=== PATIENT | male | born 1940 | race Caucasian/White ===

== ENCOUNTER → 2017-10-09 | Outpatient (CLI) | payer MEDICARE ==
[~2017-10-09] MED LIST: AMITRIPTYLINE25 MG PO; AMOXICILLIN500 M2 PO; CIPRO500 MG PO; LEVOTHYROXINE125 MCG PO; METHYLPRED-DP4 MG PO; ZESTRIL40 MG PO
== END | disposition home or self-care (01) ==
LOC: RAD 14:09
DX: R05 Cough (principal); R09.89 Other specified symptoms and signs involving the circulatory and respiratory systems; I10 Essential (primary) hypertension; Z87.891 Personal history of nicotine dependence

== ENCOUNTER 2017-10-11 13:44 | Inpatient (IN) | payer MEDICARE ==
[~2017-10-11] VITALS: Ht 177.8 cm; Wt 65.8 kg
--- NOTE | ~2017-10-11 | CON ---
[place], [place] REPORT OF CONSULTATION NAME: TRACI OLSEN [facility] #: [id number] UNIT #: [id number] ROOM: 4010 DOCTOR: EILEEN DAMICO MD BIRTHDATE: [birth year] DOS: 10/15/2017 PULMONARY CONSULTATION, EVALUATION AND MANAGEMENT CONSULTATION REQUESTED BY: Dr. Leal. REASON FOR CONSULTATION: Assess the patient's current pleural fluid and other ongoing respiratory symptoms, shortness of breath and others. HISTORY OF PRESENT ILLNESS: A 76-year-old white male, who has been admitted to the hospital under the care of Dr. Leal on 10/11/2016. The patient reported symptoms of having progressive shortness breath according to this patient for the past several days. The symptoms are associated with the cough as well. The patient was suspected with pneumonia with the chest x-ray, which was also described as atelectasis and pleural effusions. He has been started on oral antibiotics as an outpatient. The patient stated the symptoms had not resolved and admitted to the hospital for further medical management of suspected pneumonia, now resolving with current antibiotics. The patient denies any symptoms of hemoptysis. The symptoms started after acute cold symptoms in the beginning. He has not reported any significant pain in the chest or any symptoms of hemoptysis. The patient denies symptoms of sputum expectoration, but reported some chest congestion. REVIEW OF SYSTEMS: CONSTITUTIONAL: Denies any symptoms of fever or chills. Complains of fatigue. EYES: Denies any burning, redness, discharge, or dryness. EARS, NOSE, AND THROAT: No symptoms of sore throat, hoarseness, otalgia, postnasal drainage or epistaxis. CARDIOVASCULAR: Denies any anginal pain, edema, pain of the lower extremity. GASTROINTESTINAL: Denies any dysphagia, nausea, vomiting, diarrhea, abdominal pain, hematemesis, melena, abnormal weight loss, or dysphagia. GENITOURINARY: Denies dysuria, suprapubic pain, or hematuria. SKIN: Denies lesions or rashes in any parts of the body. MUSCULOSKELETAL: No acute joint pain, redness, or tenderness. CENTRAL NERVOUS SYSTEM: No dizziness, headache, diplopia, syncopal episode, or seizures history. Remaining systems were reviewed. They were noted all negative. PAST MEDICAL HISTORY: Noted with history of: 1. Benign essential hypertension. 2. Hypothyroidism. PAST SURGICAL HISTORY: Reported with shoulder surgery that was done recently. SOCIAL HISTORY: Noted nonsmoker lifetime, , has no children, lives in his home. FAMILY HISTORY: Essentially was noted as unknown. MEDICATIONS: Currently administered medication were noted as use of lisinopril, [place], [place] REPORT OF CONSULTATION NAME: TRACI OLSEN UNIT #: [id number] ROOM: 4010 DOCTOR: EILEEN DAMICO MD BIRTHDATE: [birth year] levothyroxine, Mucinex, Rocephin, and IV Levaquin. DuoNeb was also given to this patient every 4 hours. DRUG ALLERGIES: Reported as no known drug allergies. PHYSICAL EXAMINATION: GENERAL: A 76-year-old male who has been currently sitting on his bed without any acute distress at time of assessment. VITAL SIGNS: Height was recorded as 5 feet 10 inches, weight 145 pounds, BMI 20.8 on admission. The temperature was recorded as normal throughout the admission from 10/11. The respiratory rate ranged between 18-12, heart rate 78-84, blood pressure 129/84-139/87. Pulse oxygen saturation on room air at rest was noted as 94-95% saturation. HEENT: Head was atraumatic. Eyes nonicterus. NECK: Supple. Oral mucosa was noted moist. CARDIOVASCULAR: S1, S2 is audible without any added sounds. LUNGS: Decreased breath sounds noted in the lungs bilaterally. Scattered crackles without any wheezing. ABDOMEN: Soft, flat, nontender, bowel sounds present without any tenderness. EXTREMITIES: Noted without any edema, clubbing, or cyanosis. CENTRAL NERVOUS SYSTEM: Noted without any gross focal neurologic deficit. Cranial nerves 2-12 intact. SKIN: No lesions or rashes. MUSCULOSKELETAL: No obvious deformities. LABORATORY DATA: The patient's CBC on 10/11 on admission was noted completely normal. Lactic acid 1.6. CMP on admission on 10/11, normal BUN and creatinine. AST and ALT were noted mildly elevated, AST 50, ALT of 96. The CMP that was done on 10/13 was noted as normal CMP except albumin mildly decreased at 3.0, total protein mildly decreased at 6.0. Blood culture on 10/11 2 sets was noted without any bacterial growth since admission. Review of the radiology data was done for the patient personally. The chest x-ray, the first one done on 10/09/2017 was the only x-ray done in the hospital in the beginning shows small pleural fluid, basilar area of infiltration. The chest x-ray, second shows increased interstitial marking and increase of infiltration with pleural fluids. Chest x-ray that was done for the patient on 10/12 shows further worsening of the infiltration. CT scan of the chest that was done at that time shows evidence of moderate pleural fluid with compression atelectasis. Partial loculation was suspected in the left lower lobe. Patchy infiltration was noted in the basilar subsegment of the left upper lobe as well. Review of the mediastinal windows was noted suboptimal because of lack of IV contrast. However, lymphadenopathy was suspected, but cannot be clearly defined by all the dimensions. IMPRESSION: The patient who has been currently admitted to the hospital noted with: 1. Symptoms of shortness of breath with cough, possibility of acute pneumonia with superimposed congestive heart failure or bilateral pleural fluid. Other differential diagnosis will be considered possibility of superimposed congestive heart failure, undiagnosed. [place], [place] REPORT OF CONSULTATION NAME: TRACI OLSEN UNIT #: [id number] ROOM: 4010 DOCTOR: EILEEN DAMICO MD BIRTHDATE: [birth year] 2. The patient with a history of essential hypertension and hypothyroidism. There has not been any diagnosed past pulmonary disease. PLAN OF MANAGEMENT: Continue current double antibiotic coverage for the medical management of suspected pneumonia. Ultrasound assessment will be done tomorrow morning at the bedside for possible consideration of thoracentesis. Bronchodilator to be continued as previously ordered, had moderate secretions. He does not have significant cough, so the sputum culture could not be sent. Other supportive therapy and plan of management to be done. Usual care, the plan of therapy as ordered. Additional treatment changes will be made based on progression of the illness. PT/PTT will be obtained as well. Thanks for allowing me to participate in the care of this patient. EILEEN ZULUAGA MD CM:CONSTR:REPORT OF CONSULTATION 1437 10/15/17 9164 interface
--- NOTE | ~2017-10-11 | WRIGHTHP ---
[place], [place] PATIENT HISTORY AND PHYSICAL EXAM NAME: TRACI OLSEN UNIT #: [id number] ROOM: [facility] DOCTOR: MORIAH AVILES MD BIRTHDATE: [birth year] DOS: 10/11/2017 HISTORY OF PRESENT ILLNESS: The patient is 76 years old. The patient is very well known to us. He was seen in the office on Sunday with complaints of cough and shortness of breath, had a chest x-ray and was placed on antibiotics. Chest x-ray showed bibasilar pneumonia with atelectasis and pleural effusion. The patient continues to get worse with increasing shortness of breath and some chest heaviness and pleuritic complaints, so he was brought back to the Emergency Room, was admitted this time after evaluation. He denies having any fever, chills, any abdominal pain, nausea, any emesis. PAST MEDICAL HISTORY: Significant for: 1. Hypertension. 2. Recent shoulder surgery. MEDICATIONS: That he takes are levothyroxine 125 mcg daily, lisinopril 40 daily. SOCIAL HISTORY: Nonsmoker, does not use any alcohol. Lives at home with his . He is retired. PHYSICAL EXAMINATION: GENERAL: The patient is awake and alert and oriented, in no major distress this morning. VITAL SIGNS: Graphic trend shows the patient is afebrile, blood pressure is 124/84, pulse of 70, respirations 18, temperature 97.5. LUNGS: Diminished breath sounds. No wheezes, rales or rhonchi heard. HEART: Regular. ABDOMEN: Soft, scaphoid. EXTREMITIES: Without any edema. LABORATORY DATA: Shows WBC count of 9.2, hemoglobin 14.4, hematocrit 43.1. Lactic acid 1.6. Comprehensive within normal limits except for LFT abnormalities noted. ASSESSMENT AND PLAN: 1. Pneumonia, bilateral lower lobe with possibility of pleural effusion. A CT of the chest will be ordered to see the extent of the disease. The patient has been placed on IV antibiotics. 2. Hypothyroidism. Restart home medication. 3. Benign hypertension. Continue lisinopril 40 mg daily. 4. Abnormal LFTs. Liver enzymes will be ordered for tomorrow. [place], [place] PATIENT HISTORY AND PHYSICAL EXAM NAME: TRACI OLSEN UNIT #: [id number] ROOM: [facility] DOCTOR: MORIAH AVILES MD BIRTHDATE: [birth year] MORIAH AVILES MD CM:HISPHYS:PATIENT HISTORY AND PHYSICAL EXAMINATION 9 MORIAH AVILES MD 10/12/17919 interface
--- NOTE | ~2017-10-11 | PR ---
[place], [place] PROGRESS NOTE [id number] #: [id number] ROOM: 404 DOCTOR: PANCHO FELIX MD BIRTHDATE: [birth year] DOS: 10/14/2017 SUBJECTIVE: The patient complaining of some chest congestion and shortness of breath, especially when he did not take his one breathing treatment last evening. He also has cough. OBJECTIVE: VITAL SIGNS: Blood pressure 128/68, heart rate 84 beats per minute, breathing 18 times per minute, temperature 97.6 degrees Fahrenheit. GENERAL APPEARANCE: The patient is alert and oriented x 3, in no visible distress. HEENT AND NECK: Exam within normal limits. CARDIOVASCULAR SYSTEM: Heart rate is regular in rate and rhythm. S1 and S2 normally audible. LUNGS: Clear to auscultation. ABDOMEN: Soft, nontender. No obvious organomegaly. Bowel sounds are present. EXTREMITIES: Without significant cyanosis or edema. IMPRESSION: 1. Patient with bilateral pneumonia and large pleural effusion on CT of the chest. The effusion may need to be drained. I am consulting Dr. Browne to evaluate the patient. 2. Hypothyroidism, treated with supplements. 3. Benign essential hypertension. Patient on lisinopril. Blood pressures are being monitored and controlled. 4. Liver enzymes normal on the repeat test. PANCHO FELIX MD CM:PNTRANS 1522 0038 PANCHO FELIX MD 10/15/17 0038 interface
--- NOTE | ~2017-10-11 | PR ---
[place], [place] PROGRESS NOTE [id number] UN[facility] #: [id number] ROOM: 404 DOCTOR: OMRIAH AVILES MD BIRTHDATE: [birth year] DOS: SUBJECTIVE: The patient is feeling well this morning. His cough is productive of copious amounts of mucus. He is able to cough it up and he is no longer short of breath. Does not have any more chest heaviness. OBJECTIVE: VITAL SIGNS: Graphic trend shows a pressure of 126/82, pulse of 78, respirations 16 and temperature 97.2. LUNGS: Diminished breath sounds. Few scattered rales heard bilaterally. HEART: Regular. ABDOMEN: Soft. EXTREMITIES: Without any edema. ASSESSMENT AND PLAN: 1. Bilateral pneumonia, possible gram negative. Failed outpatient regimen. Admitted and treated with antibiotics and breathing treatments. 2. Bilateral large pleural effusion noted on CT of the chest with compressive atelectasis. The patient is clinically better. We did not do a thoracentesis. We will repeat a CT scan to make sure that it is resolved before I make arrangements for discharge. 3. Benign hypertension, controlled. MORIAH AVILES MD CM:PNTRANS 1 MORIAH AVILES MD 10/15/1752 interface
--- NOTE | ~2017-10-11 | PR ---
[place], [place] PROGRESS NOTE NAME: TRACI OLSEN [place] UNIT #: [id number] ROOM: 4010 DOCTOR: EILEEN DAMICO MD BIRTHDATE: [birth year] DOS: 10/16/2017 SUBJECTIVE: The patient has been noted comfortable, still noted with dyspnea with exertion. Coughing has been decreased. Denies symptoms of chest pain or any hemoptysis. Denies any edema, pain of the lower extremities. Denies any skin lesions. OBJECTIVE: VITAL SIGNS: For the patient, which has been recorded showed the temperature noted normal, respirations 18, heart rate 81, blood pressure 112/79. The pulse oxygen saturation recorded as 91% on room air at rest. HEENT: Examination shows head was atraumatic. Eyes nonicterus. NECK: Supple. CARDIOVASCULAR: S1, S2 audible. LUNGS: The patient was noted without any crackle, rhonchi or wheezing. Decreased breath sounds are noted in lower portion of the lungs, previously unchanged. ABDOMEN: Soft, nontender. Bowel sounds present. EXTREMITIES: The patient was noted without any acute edema, clubbing or cyanosis. SKIN: Visible skin. No lesions or rashes. MUSCULOSKELETAL: Does not show any acute deformities. LABORATORY DATA: No labs for the patient were done today. I have personally performed the ultrasound of the chest bilateral with moderate, pleural fluid was noted in the lungs bilaterally, greater on the right than the left side. IMPRESSION: Bilateral pleural fluid, area of compression atelectasis, possibility of superimposed acute pneumonia with the coughing and shortness of breath, required further assessment. PLAN OF MANAGEMENT: The patient will benefit from bilateral therapeutic and diagnostic thoracentesis for further assessment of pleural fluid. Possible consideration of the congestive heart failure undiagnosed to be considered in the differential diagnosis. Continue antibiotic for the suspected acute pneumonia as previously. Usual care. Additional treatment changes will be made based on the assessment of pleural fluid. [place], [place] PROGRESS NOTE NAME: TRACI OLSEN [place] UNIT #: [id number] ROOM: [facility] DOCTOR: EILEEN DAMICO MD BIRTHDATE: [birth year] EILEEN ZULUAGA MD CM:PNTRANS 1358 0034 EILEEN MARI MD 10/17/17 0303 interface
--- NOTE | ~2017-10-11 | DS ---
[place], [place] DISCHARGE SUMMARY NAME: TRACI OLSEN UNIT #: [id number] ROOM: 4010 DOCTOR: MORIAH AVILES MD BIRTHDATE: [birth year] DOS: 10/17/2017 The patient is 76 years old, admitted on 10/11, discharged on 10/17. DIAGNOSES: 1. Pneumonia, bilateral with bilateral pleural effusions and compressive atelectasis. 2. Thoracentesis, performed by Dr. Browne with close to a liter of fluid removed. 3. Benign hypertension. 4. Valvular heart disease with valve regurgitation. 5. Primary insomnia. 6. Hypothyroidism. HOSPITAL COURSE: The patient is 76 years old, comes in with complaints of difficulty breathing. The patient was placed on antibiotics as an outpatient. This did not improve. He continued to get short of breath with increasing cough. The patient was admitted to the hospital, was placed on IV antibiotics, breathing treatments and seemed to be improving, but presently continued to have a cough, so we decided to go ahead and do a CT of the chest. CT showed bilateral pleural effusions, pretty large, which is much worse on the chest x-ray findings. Abnormal liver enzymes were noted, but it came down. This could be from the infectious pathology. Dr. Browne was consulted. Thoracentesis was performed. Body fluid analysis showed that this was mostly transudative and suggested a Cardiology consultation. The patient is stable and is walking around without any complaints. He is comfortable at rest and on exercise. There is no evidence of desaturation. The plan therefore is to discharge him to home today on p.o. antibiotics and follow up with Cardiology as an outpatient. I did consult Dr. Hay. The patient is ready to be discharged this morning and he stated that he will follow up with Cardiology as an outpatient. DISCHARGE MEDICATIONS: We will make arrangements for him to see Dr. Hay as an outpatient. For right now, his meds are lisinopril 40 daily, levothyroxine 125 mcg daily, Cipro 400 mg twice daily and Elavil 25 at bedtime. [place], [place] DISCHARGE SUMMARY NAME: TRACI OLSEN UNIT #: [id number] ROOM: 4010 DOCTOR: MORIAH AVILES MD BIRTHDATE: [birth year] MORIAH AVILES MD CM:RUBEN 5 3 MORIAH AVILES MD 10/17/17903 interface
--- NOTE | ~2017-10-11 | PR ---
[place], [place] PROGRESS NOTE [id number] #: [id number] ROOM: 404 DOCTOR: PANCHO FELIX MD BIRTHDATE: [birth year] DOS: 10/13/2017 SUBJECTIVE: Patient was seen on 10/13/2017 and he said his breathing continues to significantly improve, especially with the breathing treatments, still has slight congestion he feels in his lungs. OBJECTIVE: VITAL SIGNS: Blood pressure 128/68, heart rate 84 beats, breathing 18 times a minute, temperature is 98 degrees Fahrenheit. GENERAL APPEARANCE: The patient is alert and oriented x 3, in no visible distress. HEENT AND NECK: Exam within normal limits. CARDIOVASCULAR SYSTEM: Heart rate is regular in rate and rhythm. S1 and S2 normally audible. LUNGS: Clear to auscultation. ABDOMEN: Soft, nontender. No obvious organomegaly. Bowel sounds are present. EXTREMITIES: Without significant cyanosis or edema. IMPRESSION: 1. Patient with bilateral lower lobe pneumonia and some pleural effusions, being evaluated by a repeat CT of the chest and treated with antibiotics. Patient remains on Levaquin and ceftriaxone. 2. Benign essential hypertension, treated with lisinopril. 3. Hypothyroidism, treated with levothyroxine. PANCHO FELIX MD CM:PNTRANS 1524 PANCHO FELIX MD 10/15/170 interface
--- NOTE | ~2017-10-11 | PR ---
[place], [place] PROGRESS NOTE [id number] UNIT #: [id number] ROOM: 4010 DOCTOR: MORIAH AVILES MD BIRTHDATE: [birth year] DOS: SUBJECTIVE: The patient states that he feels good. His cough has subsided. He is no longer short of breath and does not have any tightness. OBJECTIVE: VITAL SIGNS: Blood pressure is 118/70, pulse of 82, respirations 20, temperature 98.2. LUNGS: Clear. HEART: Regular. ABDOMEN: Soft. EXTREMITIES: Without any edema. ASSESSMENT AND PLAN: Compressive atelectasis with bilateral pleural effusions right-sided pneumonia. The patient is on IV antibiotics. Clinically much improved, radiologically also it is improving. Blood culture shows no bacterial growth. Now pleural effusions, the patient is waiting for Dr. Browne to do a thoracentesis. If the ultrasound does not show much fluid, then this patient can be discharged to home today on the p.o. antibiotics that has been prescribed. Discussed with the patient and nursing staff in detail. MORIAH AVILES MD CM:PNTRANS 0833 5 MORIAH AVILES MD 10/16/17 0957 interface
--- NOTE | ~2017-10-11 | PROC NOTE ---
[place], [place] PROCEDURE NOTE [id number] UNIT #: [id number] ROOM: 4010 DOCTOR: ZAN MARI MD,EILEEN BIRTHDATE: [birth year] DOS: 10/16/2017 PROCEDURE: Left-sided ultrasound-guided thoracentesis. PREOPERATIVE DIAGNOSIS: The patient with [id number] left pleural fluid. POSTOPERATIVE DIAGNOSIS: Successful removal of 550 mL of pleural fluid from the left pleural space, straw colored without any difficulty or complications. PROCEDURE DESCRIPTION: Informed consent obtained for the patient. The fluid was already marked personally with the ultrasound in the posterior lower chest wall. After that, skin was cleaned with chlorhexidine solution. A 1% lidocaine was administered in the skin intercostal space. Small amount of fluid aspirated during administration of local anesthetic. After that, an incision given in the skin. [place] thoracentesis catheter introduced through the incision left pleural space. A total of 550 mL pleural fluid from the left side was collected in the syringe and vacuum bottle. The pH was also taken for the pleural fluid directly. Procedure was well tolerated by the patient without any difficulty. Post-thoracentesis images show resolution of pleural fluid, the lung completely expanded. Chest x-ray was done for the patient post-thoracentesis that was personally reviewed shows marked improvement aeration of the lung with patchy infiltration, was still noted in the right upper lobe. There was no evidence of any pneumothorax. EILEEN ZULUAGA MD CM:PROCNOTE:PROCEDURE NOTE 1401 0039 EILEEN MARI MD
--- NOTE | ~2017-10-11 | PR ---
[place], [place] PROGRESS NOTE [id number] UNIT #: [id number] ROOM: 4010 DOCTOR: MORIAH AVILES MD BIRTHDATE: [birth year] DOS: 10/17/2017 SUBJECTIVE: The patient has no complaints today. OBJECTIVE: VITAL SIGNS: Blood pressure is 116/69, pulse of 76, respirations 18, temperature 98. LUNGS: Clear. HEART: Regular, with a systolic murmur. ABDOMEN: Soft. EXTREMITIES: Without any edema. The patient underwent a thoracentesis yesterday. Pleural fluid analysis showed that to be a transudate. ASSESSMENT AND PLAN: 1. Pneumonia, possible gram-negative, on IV antibiotics, which can be switched to p.o. 2. Bilateral pleural effusions with compressive atelectasis, status post thoracentesis. Dr. Browne did see the patient and he feels that the fluid effusion could be from a cardiac cause rather than a pulmonary cause. 3. Hypertension. The patient did have an echocardiogram, which showed valvular heart disease. Already on lisinopril. We will continue medications. We will follow up as an outpatient with Cardiology. MORIAH AVILES MD CM:PNTRANS [id number] [id number] MORIAH AVILES MD 10/17/17 1410 interface
--- NOTE | ~2017-10-11 | PROC NOTE ---
[place], [place] PROCEDURE NOTE [id number] UNIT #: [id number] ROOM: 4010 DOCTOR: ZAN MARI MD,EILEEN BIRTHDATE: [birth year] DOS: 10/16/2017 PROCEDURE: Right-sided ultrasound-guided thoracentesis. PREOPERATIVE DIAGNOSIS: The patient with nlcbvykl-ya-rhwas right pleural fluid. POSTOPERATIVE DIAGNOSIS: Successful removal of 800 mL of pleural fluid from the right pleural space, straw colored without any difficulty or complications. PROCEDURE DESCRIPTION: Informed consent obtained for the patient. The fluid was already marked personally with the ultrasound in the posterior lower chest wall. After that, skin was cleaned with chlorhexidine solution. A 1% lidocaine was administered in the skin intercostal space. Small amount of fluid aspirated during administration of local anesthetic. After that, an incision given in the skin. Turk[place] thoracentesis catheter introduced through the incision right pleural space. A total of 800 mL pleural fluid was collected in the syringe and vacuum bottle. The pH was also taken for the pleural fluid directly. Procedure was well tolerated by the patient without any difficulty. Post-thoracentesis images show resolution of pleural fluid, the lung completely expanded. EILEEN ZULUAGA MD CM:PROCNOTE:PROCEDURE NOTE 1401 0036 EILEEN MARI MD
[2017-10-11] MEDS ORDERED: LEVOTHYROXINE125 MCG PO (13:47)
[2017-10-11] MEDS ORDERED: ZESTRIL40 MG PO (13:47)
[2017-10-11] MEDS ORDERED: AMOXICILLIN500 M2 PO (13:48)
[2017-10-11] MEDS ORDERED: METHYLPRED-DP4 MG PO (13:48)
[2017-10-11 13:51] VITALS: BP 122/71
[2017-10-11 14:18] LABS: BASO % 0.3 % (0.0-1.0); EOS % 0.2 % (1.0-4.0); HEMATOCRIT 43.1 % (42.0-52.0); HEMOGLOBIN 14.4 g/dl (14.0-18.0); LYMPH # 0.9 10*3/uL (1.3-4.4); LYMPH % 10.2 % (27.0-41.0); MEAN CELL VOLUME 92.9 fl (80.0-94.0); MEAN CORPUSCULAR HGB CONC 33.4 g/dl (33.0-37.0); MEAN PLATELET VOLUME 9.7 fl (9.6-12.3); MONO # 0.8 10*3/uL (0.1-1.0); MONO % 8.2 % (3.0-9.0); NEUT # 7.5 10*3/uL (2.3-7.9); NEUT % 80.8 % (47.0-73.0); PLATELET COUNT AUTOMATED 278 10*3/uL (130-400); RED BLOOD COUNT 4.64 10*6/uL (4.50-5.90); RED CELL DISTRI WIDTH 13.5 % (0-14.5); WHITE BLOOD COUNT 9.2 10*3/uL (4.8-10.8)
[2017-10-11 14:35] LABS: ALBUMIN 3.5 gm/dl (3.1-4.5); ALKALINE PHOSPHATASE 89 U/L (45-117); BUN 16 mg/dl (7-24); CHLORIDE 103 mmol/L (98-107); CREATININE 0.97 mg/dL (0.70-1.30); POTASSIUM 4.9 mmol/L (3.5-5.1); SGOT/AST 50 IU/L (3-35); SGPT/ALT 96 U/L (12-78); SODIUM 138 mmol/L (136-145); TOTAL PROTEIN 6.9 gm/dL (6.4-8.2)
[2017-10-11 14:42] LABS: TROPONIN I < 0.015 ng/ml (<0.045)
[2017-10-11 16:00] VITALS: BP 128/87
[2017-10-11 16:30] VITALS: BP 127/80
[2017-10-11 16:51] VITALS: BP 124/90
[2017-10-11 20:00] VITALS: BP 121/78
[2017-10-12] VITALS: BP 132/85
[2017-10-12 08:00] VITALS: BP 124/84
[2017-10-12 16:00] VITALS: BP 116/61
[2017-10-12 20:00] VITALS: BP 90/50
[2017-10-13] VITALS: BP 124/73
[2017-10-13 08:00] VITALS: BP 144/74
[2017-10-13 08:25] LABS: ALKALINE PHOSPHATASE 73 U/L (45-117); BUN 13 mg/dl (7-24); CHLORIDE 105 mmol/L (98-107); CREATININE 0.93 mg/dL (0.70-1.30); SGOT/AST 20 IU/L (3-35); SGPT/ALT 61 U/L (12-78); SODIUM 140 mmol/L (136-145)
[2017-10-13 08:33] LABS: POTASSIUM 3.9 mmol/L (3.5-5.1)
[2017-10-13 16:00] VITALS: BP 128/67
[2017-10-13 20:00] VITALS: BP 118/70
[2017-10-14] VITALS: BP 139/87
[2017-10-14 08:00] VITALS: BP 128/68
[2017-10-14 16:15] VITALS: BP 122/69
[2017-10-14 20:06] VITALS: BP 117/65
[2017-10-15] VITALS: BP 129/84
[2017-10-15 08:00] VITALS: BP 126/82
[2017-10-15] MEDS ORDERED: CIPRO500 MG PO (08:41)
[2017-10-15] MEDS ORDERED: AMITRIPTYLINE25 MG PO (08:41)
[2017-10-15 11:42] LABS: ACT PARTIAL THROMBO TIME 26.2 SECONDS (20.8-31.5)
[2017-10-15 16:00] VITALS: BP 118/79
[2017-10-15 20:00] VITALS: BP 109/90
[2017-10-16] VITALS: BP 118/70
[2017-10-16 08:00] VITALS: BP 134/80
[2017-10-16 11:27] LABS: BODY FLUID WBC 107 /uL
[2017-10-16 11:31] LABS: BODY FLUID WBC 94 /uL
[2017-10-16 12:00] VITALS: BP 112/79
[2017-10-16 12:09] LABS: BF LYMPHOCYTES 66 %; BF MONOCYTES 24 %; BF NEUTROPHILS 10 %
[2017-10-16 12:12] LABS: BF LYMPHOCYTES 63 %; BF MONOCYTES 22 %; BF NEUTROPHILS 15 %
[2017-10-16 16:00] VITALS: BP 104/58
[2017-10-17] VITALS: BP 116/69
== END 2017-10-17 08:57 | disposition home or self-care (01) | DRG 194 ==
LOC: ED 13:44 → EDHOLD 15:55 → 4E 15:55 → 4NE 15:55 → 4E 16:34 → 4NE 10-15 21:44
PROVIDERS: Internal Medicine; Internal Medicine Critical Care Medicine; Student in an Organized Health Care Education/Training Program
PROC: 0W9B3ZZ Drainage of Left Pleural Cavity, Percutaneous Approach (ICD-10-PCS; principal; 2017-10-16)
PROC: 0W993ZZ Drainage of Right Pleural Cavity, Percutaneous Approach (ICD-10-PCS; 2017-10-16)
DX: J18.9 Pneumonia, unspecified organism (principal); J90 Pleural effusion, not elsewhere classified; I38 Endocarditis, valve unspecified; J98.11 Atelectasis; I10 Essential (primary) hypertension; G47.00 Insomnia, unspecified; E03.9 Hypothyroidism, unspecified; Z79.899 Other long term (current) drug therapy

== ENCOUNTER → 2017-11-09 | Outpatient (CLI) | payer MEDICARE | END | disposition home or self-care (01) | LOC: CT 16:20 | DX: I77.810 Thoracic aortic ectasia (principal); J90 Pleural effusion, not elsewhere classified ==

== ENCOUNTER → 2017-12-10 | Outpatient (CLI) | payer MEDICARE | END | disposition home or self-care (01) | LOC: RAD 13:23 | DX: T17.900D Unspecified foreign body in respiratory tract, part unspecified causing asphyxiation, subsequent encounter (principal); J90 Pleural effusion, not elsewhere classified; X58.XXXD Exposure to other specified factors, subsequent encounter ==

== ENCOUNTER → 2017-12-25 | Outpatient (CLI) | payer MEDICARE | END | disposition home or self-care (01) | LOC: LAB 10:53 | PROVIDERS: Internal Medicine Cardiovascular Disease | DX: Z48.812 Encounter for surgical aftercare following surgery on the circulatory system (principal); Z95.2 Presence of prosthetic heart valve ==

== ENCOUNTER → 2017-12-31 | Outpatient (CLI) | payer MEDICARE ==
[2017-12-31 15:51] LABS: INTERNATIONAL NORM RATIO 4.4 (2.0-3.5)
== END | disposition home or self-care (01) ==
LOC: LAB 15:05
PROVIDERS: Internal Medicine Cardiovascular Disease
DX: I48.91 Unspecified atrial fibrillation (principal)

== ENCOUNTER → 2018-01-07 | Outpatient (CLI) | payer MEDICARE ==
[2018-01-07 14:35] LABS: INTERNATIONAL NORM RATIO 2.4 (2.0-3.5)
== END | disposition home or self-care (01) ==
LOC: LAB 11:49
PROVIDERS: Internal Medicine Cardiovascular Disease
DX: I48.91 Unspecified atrial fibrillation (principal)

== ENCOUNTER → 2018-01-14 | Outpatient (CLI) | payer MEDICARE ==
[2018-01-14 14:32] LABS: INTERNATIONAL NORM RATIO 3.6 (2.0-3.5)
== END | disposition home or self-care (01) ==
LOC: LAB 13:37
PROVIDERS: Internal Medicine Cardiovascular Disease
DX: I48.91 Unspecified atrial fibrillation (principal)

== ENCOUNTER → 2018-01-21 | Outpatient (CLI) | payer MEDICARE ==
[2018-01-21 14:03] LABS: INTERNATIONAL NORM RATIO 2.1 (2.0-3.5)
== END | disposition home or self-care (01) ==
LOC: LAB 13:15
PROVIDERS: Internal Medicine Cardiovascular Disease
DX: I48.91 Unspecified atrial fibrillation (principal)

== ENCOUNTER → 2018-01-30 | Outpatient (CLI) | payer MEDICARE | END | disposition home or self-care (01) | LOC: LAB 13:20 | PROVIDERS: Internal Medicine Cardiovascular Disease | DX: I48.91 Unspecified atrial fibrillation (principal) ==

== ENCOUNTER → 2018-02-06 | Outpatient (CLI) | payer MEDICARE ==
[2018-02-06 13:32] LABS: INTERNATIONAL NORM RATIO 1.9 (2.0-3.5)
== END | disposition home or self-care (01) ==
LOC: LAB 13:06
PROVIDERS: Internal Medicine Cardiovascular Disease
DX: I48.91 Unspecified atrial fibrillation (principal)

== ENCOUNTER → 2018-02-11 | Outpatient (CLI) | payer MEDICARE ==
[2018-02-11 13:06] LABS: INTERNATIONAL NORM RATIO 2.3 (2.0-3.5)
== END | disposition home or self-care (01) ==
LOC: LAB 11:52
PROVIDERS: Internal Medicine Cardiovascular Disease
DX: I48.91 Unspecified atrial fibrillation (principal)

== ENCOUNTER → 2018-02-26 | Outpatient (CLI) | payer MEDICARE | END | disposition home or self-care (01) | LOC: LAB 10:16 | PROVIDERS: Internal Medicine Cardiovascular Disease | DX: I48.91 Unspecified atrial fibrillation (principal) ==

== ENCOUNTER → 2018-03-01 | Outpatient (CLI) | payer MEDICARE ==
[2018-03-01 10:57] LABS: INTERNATIONAL NORM RATIO 1.2 (2.0-3.5)
== END | disposition home or self-care (01) ==
LOC: LAB 10:00
PROVIDERS: Internal Medicine Cardiovascular Disease
DX: I48.91 Unspecified atrial fibrillation (principal)

== ENCOUNTER → 2018-03-08 | Outpatient (CLI) | payer MEDICARE ==
[2018-03-08 11:21] LABS: INTERNATIONAL NORM RATIO 3.4 (2.0-3.5)
== END | disposition home or self-care (01) ==
LOC: LAB 10:07
PROVIDERS: Internal Medicine Cardiovascular Disease
DX: I48.91 Unspecified atrial fibrillation (principal)

== ENCOUNTER → 2018-03-12 | Outpatient (CLI) | payer MEDICARE ==
--- NOTE | ~2018-03-12 | PF ---
[place], [place] PULMONARY FUNCTION TEST [id number] UNIT #: [id number] ROOM: DOCTOR: ZAN MARI MD,EILEEN BIRTHDATE: [birth year] DOS: 03/12/2018 The test was ordered by Dr. Jasmin Hay. HISTORY: The patient recorded a 77-year-old outpatient, male, height of 70 inches, weight of 130 pounds with BMI of 18.6. The testing was done for assessment of amiodarone therapy. SPIROMETRY: The FVC was recorded 3.68 liters, which is 90% predicted value. The FEV1 was noted recorded as 2.60 liters at 87% predicted value. Ratio of FEV1/FVC was noted as normal. The flow volume loop assessment was noted with possibility of mild obstructive airway pattern. There were no postbronchodilator testing done to see any improvement in the FEV1 or FVC. LUNG VOLUMES: Thoracic gas volume recorded as 99%, residual volume 112%, total lung capacity 91%. RV/TLC ratio 119%. Lung volumes suggestive of very mild air trapping. The patient's lung diffusion recorded at 45%, which was severely decreased without correction of carbon monoxide hemoglobin values. The patient's airway resistance and passive conductance were noted as normal. FINAL IMPRESSION: The current pulmonary function testing, which was done without any bronchodilator was noted with finding of severe reduction in the lung diffusion and mild air trapping. EILEEN ZULUAGA MD CM:PFREPORT:PULMONARY FUNCTION TEST 1638 0020 EILEEN MARI MD
[2018-03-12 08:40] LABS: ALBUMIN 3.4 gm/dl (3.1-4.5); BUN 19 mg/dl (7-24); CHLORIDE 105 mmol/L (98-107); CREATININE 1.16 mg/dL (0.70-1.30); POTASSIUM 4.8 mmol/L (3.5-5.1); SGOT/AST 28 IU/L (3-35); SGPT/ALT 47 U/L (12-78); SODIUM 139 mmol/L (136-145); TOTAL PROTEIN 7.1 gm/dL (6.4-8.2)
[2018-03-12 08:44] LABS: INTERNATIONAL NORM RATIO 3.6 (2.0-3.5)
[2018-03-12 08:49] LABS: ALKALINE PHOSPHATASE 120 U/L (45-117)
== END | disposition home or self-care (01) ==
LOC: LAB 06:49
PROVIDERS: Internal Medicine Cardiovascular Disease
DX: I48.91 Unspecified atrial fibrillation (principal); Z79.899 Other long term (current) drug therapy

== ENCOUNTER 2019-12-05 19:24 | Emergency (ER) | payer MEDICARE ==
[~2019-12-05] VITALS: Ht 177.8 cm; Wt 61.2 kg
== END 2019-12-06 01:25 | disposition short-term general hospital (02) ==
LOC: ED 19:24
DX: S93.401A Sprain of unspecified ligament of right ankle, initial encounter (principal); M25.462 Effusion, left knee; I10 Essential (primary) hypertension; E03.9 Hypothyroidism, unspecified; Z79.2 Long term (current) use of antibiotics; Z79.899 Other long term (current) drug therapy; X50.1XXA Overexertion from prolonged static or awkward postures, initial encounter; W18.39XA Other fall on same level, initial encounter; Y93.89 Activity, other specified; Y92.098 Other place in other non-institutional residence as the place of occurrence of the external cause; Y99.8 Other external cause status

== ENCOUNTER → 2021-05-27 | Day surgery (SDC) | payer MEDICARE ==
[~2021-05-27] VITALS: Ht 177.8 cm; Wt 59.0 kg
[~2021-05-27] MED LIST changes: +ASPIRIN CHEWABL81 MG PO; +COREG6.25 MG PO; +ELIQUIS2.5 M1 PO; +K-TAB10 MEQ PO; +LASIX40 MG PO; +LIPITOR20 MG PO; +LOSARTAN POTASS50 M1 PO; +NORVASC5 MG PO
[2021-05-27 10:10] VITALS: BP 145/80
[2021-05-27 10:58] VITALS: BP 120/64
[2021-05-27 11:13] VITALS: BP 105/56
[2021-05-27 11:27] VITALS: BP 112/56
== END | disposition home or self-care (01) ==
LOC: SDC 05-23 12:30
PROVIDERS: ATTEND Internal Medicine
DX: I48.19 Other persistent atrial fibrillation (principal); I10 Essential (primary) hypertension; E03.9 Hypothyroidism, unspecified; E78.5 Hyperlipidemia, unspecified; Z90.49 Acquired absence of other specified parts of digestive tract; Z98.890 Other specified postprocedural states; Z79.82 Long term (current) use of aspirin; Z79.899 Other long term (current) drug therapy; Z20.822 Contact with and (suspected) exposure to COVID-19

== ENCOUNTER → 2021-08-10 | Outpatient (CLI) | payer MEDICARE ==
[2021-08-10 10:30] LABS: BASO % 0.1 % (0.0-1.0); EOS % 0.4 % (1.0-4.0); HEMATOCRIT 42.6 % (42.0-52.0); LYMPH # 1.4 10*3/uL (1.3-4.4); LYMPH % 13.8 % (27.0-41.0); MEAN CELL VOLUME 94.2 fl (80.0-94.0); MEAN CORPUSCULAR HGB 30.3 pg (27.0-31.0); MEAN CORPUSCULAR HGB CONC 32.2 g/dl (33.0-37.0); MONO % 9.6 % (3.0-9.0); NEUT # 7.8 10*3/uL (2.3-7.9); NEUT % 75.4 % (47.0-73.0); PLATELET COUNT AUTOMATED 231 10*3/uL (130-400); RED BLOOD COUNT 4.52 10*6/uL (4.50-5.90); RED CELL DISTRI WIDTH 13.5 % (0-14.5); WHITE BLOOD COUNT 10.4 10*3/uL (4.8-10.8)
[2021-08-10 10:45] LABS: ALBUMIN 3.4 gm/dl (3.1-4.5); BUN 31 mg/dl (7-24); CHLORIDE 105 mmol/L (98-107); CHOLESTEROL 155 mg/dL (<200); CREATININE 1.11 mg/dL (0.70-1.30); LDL CHOLESTEROL 76 mg/dL (9-159); POTASSIUM 4.3 mmol/L (3.5-5.1); SGOT/AST 14 IU/L (3-35); SGPT/ALT 30 U/L (12-78); SODIUM 138 mmol/L (136-145); TOTAL PROTEIN 7.2 gm/dL (6.4-8.2); TRIGLYCERIDES 68 mg/dl (<150)
[2021-08-10 10:51] LABS: ALKALINE PHOSPHATASE 93 U/L (45-117); FREE T4 1.32 ng/dl (0.76-1.46); THYROID STIM HORMONE (HS) 0.567 uIU/ml (0.358-4.75)
[2021-08-10 13:51] LABS: VITAMIN D, 25-HYDROXY 30.9 ng/mL (30-100)
[2021-08-11 05:06] LABS: RHEUMATOID ARTHRITIS FACTOR <10.0 IU/mL (0.0-13.9)
[2021-08-11 13:07] LABS: ANTI-DSDNA ANTIBODIES <1 IU/mL (0-9)
[2021-08-12 00:06] LABS: CCP ANTIBODIES IGG/IGA 4 units (0-19)
== END | disposition home or self-care (01) ==
LOC: LAB 09:57
PROVIDERS: ATTEND Internal Medicine
DX: M16.0 Bilateral primary osteoarthritis of hip (principal); M19.011 Primary osteoarthritis, right shoulder; M19.012 Primary osteoarthritis, left shoulder; I10 Essential (primary) hypertension; M06.9 Rheumatoid arthritis, unspecified; R76.0 Raised antibody titer; Z13.828 Encounter for screening for other musculoskeletal disorder; R53.81 Other malaise; R79.89 Other specified abnormal findings of blood chemistry; E55.9 Vitamin D deficiency, unspecified; D51.9 Vitamin B12 deficiency anemia, unspecified; E03.9 Hypothyroidism, unspecified; D52.9 Folate deficiency anemia, unspecified; Z13.0 Encounter for screening for diseases of the blood and blood-forming organs and certain disorders involving the immune mechanism; Z13.1 Encounter for screening for diabetes mellitus; Z13.21 Encounter for screening for nutritional disorder; Z13.220 Encounter for screening for lipoid disorders; Z13.228 Encounter for screening for other metabolic disorders; Z13.6 Encounter for screening for cardiovascular disorders; Z13.89 Encounter for screening for other disorder

== ENCOUNTER 2021-08-26 23:40 | Inpatient (IN) | payer MEDICARE ==
[~2021-08-26] VITALS: Ht 172.7 cm; Wt 68.0 kg
[2021-08-26 23:43] VITALS: BP 80/60
[2021-08-27 00:15] LABS: BASO % 0.2 % (0.0-1.0); EOS % 0.3 % (1.0-4.0); HEMATOCRIT 32.3 % (42.0-52.0); LYMPH # 0.5 10*3/uL (1.3-4.4); LYMPH % 4.2 % (27.0-41.0); MEAN CELL VOLUME 91.5 fl (80.0-94.0); MEAN CORPUSCULAR HGB 30.9 pg (27.0-31.0); MEAN CORPUSCULAR HGB CONC 33.7 g/dl (33.0-37.0); MEAN PLATELET VOLUME 9.4 fl (9.6-12.3); MONO # 0.7 10*3/uL (0.1-1.0); MONO % 6.3 % (3.0-9.0); NEUT # 9.5 10*3/uL (2.3-7.9); NEUT % 88.2 % (47.0-73.0); PLATELET COUNT AUTOMATED 119 10*3/uL (130-400); RED BLOOD COUNT 3.53 10*6/uL (4.50-5.90); RED CELL DISTRI WIDTH 13.8 % (0-14.5); WHITE BLOOD COUNT 10.8 10*3/uL (4.8-10.8)
[2021-08-27 00:26] LABS: ACT PARTIAL THROMBO TIME 28.5 SECONDS (20.0-32.1); INTERNATIONAL NORM RATIO 1.1 (2.0-3.5)
[2021-08-27 00:28] LABS: CREATININE 1.42 mg/dL (0.70-1.30); POTASSIUM 3.7 mmol/L (3.5-5.1)
[2021-08-27 01:01] LABS: TROPONIN I 0.039 ng/ml (<0.045)
[2021-08-27 01:38] VITALS: BP 101/50
[2021-08-27 03:12] VITALS: BP 90/50
[2021-08-27 04:51] LABS: BUN 33 mg/dl (7-24); CHLORIDE 108 mmol/L (98-107); CREATININE 1.05 mg/dL (0.70-1.30); POTASSIUM 3.7 mmol/L (3.5-5.1); SODIUM 137 mmol/L (136-145)
[2021-08-27 16:00] VITALS: BP 132/70
== END 2021-08-27 18:20 | disposition home or self-care (01) | DRG 640 ==
LOC: ED 23:40 → EDHOLD 08-27 03:06
PROVIDERS: Emergency Medicine; ADMIT Internal Medicine; ATTEND Internal Medicine
DX: E86.0 Dehydration (principal); N17.0 Acute kidney failure with tubular necrosis; E03.9 Hypothyroidism, unspecified; E86.1 Hypovolemia; I10 Essential (primary) hypertension; I25.10 Atherosclerotic heart disease of native coronary artery without angina pectoris; Z95.1 Presence of aortocoronary bypass graft; Z79.82 Long term (current) use of aspirin; Z79.899 Other long term (current) drug therapy

== ENCOUNTER → 2022-06-16 | Day surgery (SDC) | payer MEDICARE ==
[~2022-06-16] VITALS: Ht 177.8 cm; Wt 59.0 kg
[~2022-06-16] MED LIST changes: +AMLODIPINE BES2.5 MG PO; +CARVEDILOL3.125 MG PO; +LEVOFLOXACIN500 MG PO
[2022-06-16 09:30] VITALS: BP 172/68
[2022-06-16 10:45] VITALS: BP 124/64
[2022-06-16 11:00] VITALS: BP 122/60
[2022-06-16 11:15] VITALS: BP 125/62
== END | disposition home or self-care (01) ==
LOC: SDC 06-15 14:00
PROVIDERS: ATTEND Internal Medicine Cardiovascular Disease
DX: I48.92 Unspecified atrial flutter (principal); I10 Essential (primary) hypertension; E03.9 Hypothyroidism, unspecified; I45.10 Unspecified right bundle-branch block; Z95.1 Presence of aortocoronary bypass graft; Z98.890 Other specified postprocedural states

== ENCOUNTER → 2022-10-10 | Outpatient (CLI) | payer MEDICARE ==
[2022-10-10 11:38] LABS: BASO % 0.5 % (0.0-1.0); EOS # 0.4 10*3/uL (0.0-0.4); EOS % 5.3 % (1.0-4.0); HEMATOCRIT 43.5 % (42.0-52.0); LYMPH # 1.4 10*3/uL (1.3-4.4); LYMPH % 17.6 % (27.0-41.0); MEAN CELL VOLUME 93.1 fl (80.0-94.0); MEAN CORPUSCULAR HGB CONC 33.3 g/dl (33.0-37.0); MEAN PLATELET VOLUME 9.2 fl (9.6-12.3); MONO # 0.7 10*3/uL (0.1-1.0); MONO % 9.1 % (3.0-9.0); NEUT # 5.2 10*3/uL (2.3-7.9); NEUT % 67.2 % (47.0-73.0); PLATELET COUNT AUTOMATED 173 10*3/uL (130-400); RED BLOOD COUNT 4.67 10*6/uL (4.50-5.90); RED CELL DISTRI WIDTH 13.7 % (0-14.5); WHITE BLOOD COUNT 7.7 10*3/uL (4.8-10.8)
[2022-10-10 11:58] LABS: ALKALINE PHOSPHATASE 92 U/L (46-116); BUN 20 mg/dl (9-23); CHLORIDE 106 mmol/L (98-107); CHOLESTEROL 144 mg/dL (<200); FREE T4 1.71 ng/dl (0.89-1.76); LDL CHOLESTEROL 81 mg/dL (9-159); POTASSIUM 4.7 mmol/L (3.4-5.1); SGPT/ALT 34 U/L (10-49); THYROID STIM HORMONE (HS) 0.518 uIU/ml (0.550-4.780); TOTAL PROTEIN 6.8 gm/dL (6.0-8.0); TRIGLYCERIDES 72 mg/dl (<150)
[2022-10-10 12:23] LABS: VITAMIN D, 25-HYDROXY 27.6 ng/mL (30-100)
== END | disposition home or self-care (01) ==
LOC: LAB 10:56
PROVIDERS: ATTEND Internal Medicine
DX: I25.10 Atherosclerotic heart disease of native coronary artery without angina pectoris (principal); I10 Essential (primary) hypertension; I48.21 Permanent atrial fibrillation; E55.9 Vitamin D deficiency, unspecified; R53.83 Other fatigue; E03.9 Hypothyroidism, unspecified; N40.1 Benign prostatic hyperplasia with lower urinary tract symptoms; E78.2 Mixed hyperlipidemia; Z13.0 Encounter for screening for diseases of the blood and blood-forming organs and certain disorders involving the immune mechanism; Z13.1 Encounter for screening for diabetes mellitus; Z13.220 Encounter for screening for lipoid disorders; Z13.21 Encounter for screening for nutritional disorder; Z13.29 Encounter for screening for other suspected endocrine disorder; Z13.6 Encounter for screening for cardiovascular disorders; Z13.89 Encounter for screening for other disorder; Z13.9 Encounter for screening, unspecified; Z13.228 Encounter for screening for other metabolic disorders

== ENCOUNTER → 2022-10-13 | Outpatient (CLI) | payer MEDICARE ==
[~2022-10-13] MED LIST changes: -ELIQUIS2.5 M1 PO; +ELIQUIS5 M1 PO
== END | disposition home or self-care (01) ==
LOC: CARD 01:50
PROVIDERS: ATTEND Internal Medicine
DX: I45.10 Unspecified right bundle-branch block (principal); I48.91 Unspecified atrial fibrillation; I48.92 Unspecified atrial flutter; I25.10 Atherosclerotic heart disease of native coronary artery without angina pectoris; I10 Essential (primary) hypertension

== ENCOUNTER → 2022-10-18 | Outpatient (CLI) | payer MEDICARE | END | disposition home or self-care (01) | LOC: CT 10:00 | PROVIDERS: ATTEND Internal Medicine | DX: J43.2 Centrilobular emphysema (principal); J98.4 Other disorders of lung; I34.81 Nonrheumatic mitral (valve) annulus calcification; I25.10 Atherosclerotic heart disease of native coronary artery without angina pectoris; I70.0 Atherosclerosis of aorta; I51.7 Cardiomegaly; K44.9 Diaphragmatic hernia without obstruction or gangrene; K57.90 Diverticulosis of intestine, part unspecified, without perforation or abscess without bleeding; Z90.49 Acquired absence of other specified parts of digestive tract; Z98.890 Other specified postprocedural states; Z87.891 Personal history of nicotine dependence ==

== ENCOUNTER → 2022-11-23 | Outpatient (CLI) | payer MEDICARE | END | disposition home or self-care (01) | LOC: US 09:30 | PROVIDERS: ATTEND Internal Medicine | DX: I65.23 Occlusion and stenosis of bilateral carotid arteries (principal); I25.10 Atherosclerotic heart disease of native coronary artery without angina pectoris ==

== ENCOUNTER → 2023-06-07 | Outpatient (CLI) | payer MEDICARE | END | disposition home or self-care (01) | LOC: CARD 06-06 00:58 | PROVIDERS: ATTEND Internal Medicine | DX: I08.1 Rheumatic disorders of both mitral and tricuspid valves (principal); I48.21 Permanent atrial fibrillation ==

== ENCOUNTER → 2024-10-28 | Outpatient (CLI) | payer MEDICARE ==
[2024-10-28 13:00] LABS: BASO % 0.1 % (0.0-1.0); EOS % 0.1 % (1.0-4.0); HEMATOCRIT 41.5 % (42.0-52.0); MEAN CELL VOLUME 97.4 fl (80.0-94.0); MEAN CORPUSCULAR HGB 31.7 pg (27.0-31.0); MEAN CORPUSCULAR HGB CONC 32.5 g/dl (33.0-37.0); MEAN PLATELET VOLUME 9.2 fl (9.6-12.3); MONO # 0.8 10*3/uL (0.1-1.0); MONO % 7.7 % (3.0-9.0); NEUT # 8.4 10*3/uL (2.3-7.9); NEUT % 81.9 % (47.0-73.0); PLATELET COUNT AUTOMATED 173 10*3/uL (130-400); RED BLOOD COUNT 4.26 10*6/uL (4.50-5.90); WHITE BLOOD COUNT 10.3 10*3/uL (4.8-10.8)
[2024-10-28 13:59] LABS: ALKALINE PHOSPHATASE 79 U/L (46-116); BUN 25 mg/dl (9-23); CHLORIDE 103 mmol/L (98-107); CHOLESTEROL 124 mg/dL (<200); FREE T4 1.72 ng/dl (0.89-1.76); LDL CHOLESTEROL 55 mg/dL (9-159); POTASSIUM 4.2 mmol/L (3.4-5.1); SGPT/ALT 25 U/L (5-49); TOTAL PROTEIN 6.2 gm/dL (6.0-8.0); TRIGLYCERIDES 52 mg/dl (<150); VITAMIN D, 25-HYDROXY 26.3 ng/mL (30-100)
== END | disposition home or self-care (01) ==
LOC: LAB 12:43
PROVIDERS: ATTEND Internal Medicine
DX: Z12.5 Encounter for screening for malignant neoplasm of prostate (principal); I10 Essential (primary) hypertension; I95.9 Hypotension, unspecified; E78.2 Mixed hyperlipidemia; E03.9 Hypothyroidism, unspecified; E55.9 Vitamin D deficiency, unspecified; R97.20 Elevated prostate specific antigen [PSA]; R53.83 Other fatigue

== ENCOUNTER → 2025-03-25 | Outpatient (CLI) | payer MEDICARE ==
[~2025-03-25] MED LIST changes: +BARIUM SULFATE 60% 355 ML BOT PO ONE; +BARIUM SULFATE 96% 176 GM BOT PO ONE; +BARIUM SULFATE TABLET 700 MG PO ONE; +SODIUM BICARBONATE 4 GM PACK PO ONE
== END | disposition home or self-care (01) ==
LOC: RAD 10:00
PROVIDERS: ATTEND Internal Medicine Gastroenterology
DX: K21.9 Gastro-esophageal reflux disease without esophagitis (principal); K44.9 Diaphragmatic hernia without obstruction or gangrene

== ENCOUNTER → 2025-05-27 | Outpatient (CLI) | payer MEDICARE ==
[~2025-05-27] MED LIST changes: -BARIUM SULFATE 60% 355 ML BOT PO ONE; -BARIUM SULFATE 96% 176 GM BOT PO ONE; -BARIUM SULFATE TABLET 700 MG PO ONE; +Regadenoson 0.4 MG/5 ML SYR IV ONE; -SODIUM BICARBONATE 4 GM PACK PO ONE; +Technetium Tc 99M Tetrofosmi 0.23 MG KIT IJ SCH; +WARFARIN SODIUM1 MG PO
== END | disposition home or self-care (01) ==
LOC: CARD 01:18
PROVIDERS: ATTEND Nurse Practitioner Family
DX: I34.2 Nonrheumatic mitral (valve) stenosis (principal); R06.02 Shortness of breath